=== PATIENT | female | born 1960 | race Caucasian/White ===

== ENCOUNTER 2022-12-05 11:37 | Emergency (ER) | payer OTHER ==
[~2022-12-05] VITALS: Ht 157.5 cm; Wt 78.0 kg
[~2022-12-05 11:37] MED LIST: ALBU2.5V13 NEB; ALBU90AE INH; ASPI-1497 MT; BENA10TA74 MT; BRIV50TA MT; FOLI0.4T6 MT; LEVE500T98 MT; LEVO750T68 MT; OMEP20TA23 PO; SERT-112 MT
[2022-12-05 11:44] VITALS: BP 108/54
[2022-12-05] MEDS ORDERED: PREDNISONE 10MG TABLET PO ONE (16:15)
[2022-12-05] MEDS ORDERED: ALBUTEROL (0.083%) 2.5MG/3ML NEB HHN ONE (16:15)
[2022-12-05] MEDS ORDERED: MED4 MT (17:29)
[2022-12-05] MEDS ORDERED: ALBU18HF2 IH (17:29)
== END 2022-12-05 17:36 | disposition home or self-care (01) ==
LOC: ER 11:37
DX: R06.02 Shortness of breath (principal); F32.9 Major depressive disorder, single episode, unspecified; I10 Essential (primary) hypertension; Z87.01 Personal history of pneumonia (recurrent); Z79.899 Other long term (current) drug therapy
CPT/HCPCS: 71045; 93005; 94640; 99283; J7512; Z7610

== ENCOUNTER 2023-03-26 18:56 | Emergency (ER) | payer OTHER ==
[~2023-03-26] VITALS: Ht 165.1 cm; Wt 83.0 kg
[~2023-03-26 18:56] MED LIST changes: +ALBU18HF2 IH; +MED4 MT
[2023-03-26 18:59] VITALS: O2SAT 94
[2023-03-26] MEDS ORDERED: ACETAMINOPHEN 650MG SUPP PR STA (19:52)
[2023-03-26] MEDS ORDERED: CEFTRIAXONE 2GM/50ML (ADDEASE) 50 ML IV ONE (20:00)
[2023-03-26] MEDS ORDERED: SODIUM CHLORIDE 0.9% 1000ML BAG (SEPSIS BOLUS) IV ONE (20:00)
[2023-03-26] MEDS ORDERED: LEVETIRACETAM 1000MG PREMIX 100 ML IV ONE (20:00)
[2023-03-26] MEDS ORDERED: AMPICILLIN 2,000 MG in SODIUM CHLORIDE 0.9% 100 ML IV SCH (20:00)
[2023-03-26] MEDS ORDERED: VANCOMYCIN 500MG PREMIX 100 ML IV SCH (20:00)
[2023-03-26] MEDS ORDERED: VANCOMYCIN 1G PREMIX 200 ML IV SCH (20:00)
[2023-03-26] MEDS ORDERED: VANCOMYCIN 1.5GM/250ML IVPB 250 ML IV NR (20:30)
[2023-03-26] MEDS ORDERED: CEFTRIAXONE 2 G in DEXTROSE 5% WATER 50 ML IV NR (20:30)
[2023-03-26 20:40] LABS: BASOPHILS % 0.9 % (0.0-2.0); EOSINOPHILS % 0.6 % (0.0-5.0); HEMATOCRIT. 29.5 % (36.0-48.0); HEMOGLOBIN. 10.2 g/dL (12.0-16.0); LYMPHOCYTES % 12.2 % (20.0-50.0); MEAN CORPUSCULAR HEMOGLOBIN 30.5 pg (28.0-32.0); MEAN CORPUSCULAR VOLUME 88.6 fL (81.0-99.0); MONOCYTES % 3.8 % (2.0-8.0); NEUTROPHILS % 82.5 % (40.0-76.0); PLATELET 806 x1000/uL (130-400); RED BLOOD CELL COUNT 3.33 mill/uL (4.2-5.4); RED CELL DISTRIBUTION WIDTH 14.3 % (11.6-14.6)
[2023-03-26 20:41] LABS: CHLORIDE 104 mEq/L (98-107)
[2023-03-26 20:58] LABS: BG BASE EXCESS -0.9 mmol/L (-2.0-2.0); BG CARBOXYHEMOGLOBIN 0.3 % (0.5-1.5); BG DEOXYHEMOGLOBIN 1.8 % (0.0-5.0); BG FRACTION INSPIRED OXYGEN 32; BG HCO3 ACT 24.3 mmol/L (22.0-26.0); BG METHEMOGLOBIN 0.5 % (0.0-1.5); BG OXYGEN SATURATION 98.2 % (92.0-98.5); BG OXYHEMOGLOBIN 97.4 % (94.0-97.0); BG PCO2 42.6 mmHg (35.0-45.0); BG PH 7.374 (7.350-7.450); BG PO2 115.3 mmHg (75.0-100.0); BG SAMPLE SITE RIGHT RADIAL; BG TOTAL HEMOGLOBIN 11.4 g/dL (12.0-18.0); BG VENT MODE NASAL CANNULA
[2023-03-27] VITALS: BP 136/71; PULSE 70; RESP 19; TEMP 99.4
== END 2023-03-27 00:20 | disposition short-term general hospital (02) ==
LOC: ER 18:56 → CANBEDREQ 03-28 20:19
DX: R56.9 Unspecified convulsions (principal); R50.9 Fever, unspecified; F32.9 Major depressive disorder, single episode, unspecified; I10 Essential (primary) hypertension; Z87.01 Personal history of pneumonia (recurrent)
CPT/HCPCS: 99291; 96365; 70450; 71045; 80053; 83605; 85025; 87040; 84484; 36415; 84145; 82805; 82375; 93005; 96368; 36600; J3370; J1953; J0290; J0696; J7060; J7050; J7030

== ENCOUNTER 2023-04-02 08:22 | Emergency (ER) | payer OTHER ==
[~2023-04-02] VITALS: Ht 165.1 cm; Wt 80.0 kg
[2023-04-02 08:26] VITALS: O2SAT 99
[2023-04-02] MEDS ORDERED: LEVETIRACETAM 500MG TABLET PO ONE (09:00)
[2023-04-02] MEDS ORDERED: ACETAMINOPHEN 325MG TABLET PO ONE (09:00)
[2023-04-02] MEDS ORDERED: MEROPENEM 1,000 MG in SODIUM CHLORIDE 0.9% 100 ML IV SCH (11:30)
[2023-04-02] MEDS ORDERED: MEROPENEM 1,000 MG in SODIUM CHLORIDE 0.9% 100 ML IV NR (12:00)
[2023-04-02 12:12] LABS: BASOPHILS % 0.5 % (0.0-2.0); EOSINOPHILS % 1.2 % (0.0-5.0); HEMATOCRIT. 30.8 % (36.0-48.0); HEMOGLOBIN. 10.4 g/dL (12.0-16.0); LYMPHOCYTES % 17.4 % (20.0-50.0); MEAN CORPUSCULAR HEMOGLOBIN 29.3 pg (28.0-32.0); MEAN CORPUSCULAR VOLUME 87.2 fL (81.0-99.0); MEAN PLATELET VOLUME 7.6 fl (7.4-10.4); MONOCYTES % 4.1 % (2.0-8.0); NEUTROPHILS % 76.8 % (40.0-76.0); PLATELET 675 x1000/uL (130-400); RED BLOOD CELL COUNT 3.53 mill/uL (4.2-5.4)
[2023-04-02 13:05] VITALS: BP 121/72; PULSE 72; RESP 15; TEMP 98.4
[2023-04-02 13:27] LABS: CHLORIDE 102 mEq/L (98-107)
== END 2023-04-02 13:25 | disposition admitted as inpatient to this hospital (09) ==
LOC: ER 08:22 → CANBEDREQ 20:28
DX: R56.9 Unspecified convulsions (principal); I10 Essential (primary) hypertension; Z79.82 Long term (current) use of aspirin; Z91.148 Patient's other noncompliance with medication regimen for other reason; Z98.890 Other specified postprocedural states
CPT/HCPCS: 80053; 85025; 36415; 99283; J2185; J7050; Z7610 ×3

== ENCOUNTER 2023-10-28 08:36 | Emergency (ER) | payer OTHER ==
[~2023-10-28] VITALS: Ht 162.6 cm; Wt 68.0 kg
[2023-10-28 08:39] VITALS: O2SAT 94
[2023-10-28] MEDS: LEVETIRACETAM 1000MG PREMIX 100 ML IV ONE (09:34)
[2023-10-28 09:40] LABS: HEMATOCRIT. 40.2 % (36.0-48.0); HEMOGLOBIN. 13.3 g/dL (12.0-16.0); MEAN CORPUSCULAR HEMOGLOBIN 30.1 pg (28.0-32.0); MEAN CORPUSCULAR HGB CONC 33.2 g/dL (31.0-37.0); MEAN CORPUSCULAR VOLUME 90.7 fL (81.0-99.0); MEAN PLATELET VOLUME 8.1 fl (7.4-10.4); PLATELET 362 x1000/uL (130-400); RED BLOOD CELL COUNT 4.43 mill/uL (4.2-5.4); RED CELL DISTRIBUTION WIDTH 15.2 % (11.6-14.6); WHITE BLOOD COUNT 20.7 x1000/uL (4.5-11.0)
[2023-10-28 09:56] LABS: DIFFERENTIAL COMMENT 1
[2023-10-28 09:57] LABS: ALANINE AMINOTRANSFERASE 15 IU/L (10-49); ALBUMIN 4.7 g/dL (3.2-4.8); AMMONIA < 10 uMol/L (<32); ASPARTATE AMINOTRANSFERASE 32 IU/L (<34); BILIRUBIN TOTAL 0.4 mg/dL (0.1-1.0); CALCIUM 9.8 mg/dL (8.7-10.4); CARBON DIOXIDE 22 mEq/L (21-32); CHLORIDE 105 mEq/L (98-107); CREATININE 0.7 mg/dL (0.6-1.0); ETHANOL BLOOD < 10 mg/dL (<10); GLUCOSE 125 mg/dL (70-105); POTASSIUM 3.9 mEq/L (3.5-5.1); PROTEIN TOTAL 8.7 g/dL (6.0-8.3); SODIUM 139 mEq/L (136-145); UREA NITROGEN BLOOD 17 mg/dL (9-23)
[2023-10-28 12:29] LABS: PLATELET ESTIMATE NORMAL
[2023-10-28 15:32] VITALS: BP 141/68; PULSE 90; RESP 22; TEMP 98.6
== END 2023-10-28 15:35 | disposition short-term general hospital (02) ==
LOC: ER 08:36 → CANBEDREQ 12:40 → ER 15:35
DX: R56.9 Unspecified convulsions (principal); R41.82 Altered mental status, unspecified; J44.1 Chronic obstructive pulmonary disease with (acute) exacerbation; I10 Essential (primary) hypertension; Z79.899 Other long term (current) drug therapy; Z79.82 Long term (current) use of aspirin; Z98.890 Other specified postprocedural states
CPT/HCPCS: 80053; 80320; 82140; 85025; 36415; 71045; 70450; 93005; 96365; 99285; J1953; G0480

== ENCOUNTER 2024-03-21 15:00 | Inpatient (IN) | payer MEDICARE, MEDICAID ==
[~2024-03-21] VITALS: Ht 167.6 cm; Wt 83.5 kg
[2024-03-21] MEDS: LORAZEPAM 2MG/ML INJ IV ONE (15:28)
[2024-03-21 17:03] LABS: BASOPHILS % 0.5 % (0.0-2.0); EOSINOPHILS % 3.2 % (0.0-5.0); HEMATOCRIT. 36.6 % (36.0-48.0); HEMOGLOBIN. 12.4 g/dL (12.0-16.0); LYMPHOCYTES % 13.9 % (20.0-50.0); MEAN CORPUSCULAR HEMOGLOBIN 30.9 pg (28.0-32.0); MEAN CORPUSCULAR HGB CONC 33.9 g/dL (31.0-37.0); MEAN CORPUSCULAR VOLUME 91.2 fL (81.0-99.0); MEAN PLATELET VOLUME 7.9 fl (7.4-10.4); MONOCYTES % 4.3 % (2.0-8.0); NEUTROPHILS % 78.1 % (40.0-76.0); PLATELET 352 x1000/uL (130-400); RED BLOOD CELL COUNT 4.01 mill/uL (4.2-5.4); RED CELL DISTRIBUTION WIDTH 15.2 % (11.6-14.6); WHITE BLOOD COUNT 9.2 x1000/uL (4.5-11.0)
[2024-03-21 17:09] LABS: CHLORIDE 106 mEq/L (98-107); POTASSIUM 4.1 mEq/L (3.5-5.1); SODIUM 138 mEq/L (136-145)
[2024-03-21 17:10] LABS: CALCIUM 9.3 mg/dL (8.7-10.4); CARBON DIOXIDE 26 mEq/L (21-32)
[2024-03-21 17:13] LABS: PROTHROMBIN TIME 10.7 sec (9.6-11.0)
[2024-03-21 17:15] LABS: CREATININE 0.7 mg/dL (0.6-1.0); GLUCOSE 107 mg/dL (70-105); UREA NITROGEN BLOOD 22 mg/dL (9-23)
[2024-03-21 17:17] LABS: ALANINE AMINOTRANSFERASE 29 IU/L (10-49); ALBUMIN 4.4 g/dL (3.2-4.8); ASPARTATE AMINOTRANSFERASE 26 IU/L (<34); BILIRUBIN TOTAL 0.2 mg/dL (0.1-1.0); PROTEIN TOTAL 7.7 g/dL (6.0-8.3)
[2024-03-21 17:21] LABS: BILIRUBIN DIRECT < 0.1 mg/dL (<=3.0); TROPONIN I HIGH SENSITIVITY < 4 ng/L (3.0-34)
[2024-03-21 20:25] VITALS: BP 134/66; PULSE 63; RESP 18; TEMP 97.4
[2024-03-21] MEDS ORDERED: LEVETIRACETAM 1,000 MG in SODIUM CHLORIDE 0.9% 100 ML IV SCH (20:45)
[2024-03-21] MEDS ORDERED: LEVETIRACETAM 1000MG PREMIX 100 ML IV NR (20:45)
[2024-03-21 23:12] VITALS: BP 134/66; PULSE 93; RESP 22; TEMP 97.4
[2024-03-22] VITALS: BP 153/81; PULSE 72; RESP 20; TEMP 97.7
[2024-03-22] MEDS: LEVETIRACETAM 500MG TABLET PO SCH (01:33)
[2024-03-22] MEDS ORDERED: LORAZEPAM 2MG/ML INJ IV PRN (01:45)
[2024-03-22 04:00] VITALS: BP 128/60; PULSE 55; RESP 21; TEMP 96.8
[2024-03-22 08:00] VITALS: BP 122/45; PULSE 60; RESP 20; TEMP 97.7
[2024-03-22] MEDS: OMEPRAZOLE 20MG CAPSULE EXTENDED RELEASE PO SCH (08:49)
[2024-03-22] MEDS: ASPIRIN 81MG TABLET PO SCH (08:49)
[2024-03-22 16:00] VITALS: BP 126/53; PULSE 63; RESP 18; TEMP 97.7
[2024-03-22 20:00] VITALS: BP 141/67; PULSE 59; RESP 21; TEMP 98.6
[2024-03-23] VITALS: BP 124/56; PULSE 53; RESP 18; TEMP 98.1
[2024-03-23 04:00] VITALS: BP 124/71; PULSE 56; RESP 18; TEMP 97.7
[2024-03-23 08:00] VITALS: BP 131/89; PULSE 58; RESP 15; TEMP 98.7
[2024-03-23 12:00] VITALS: BP 124/79; PULSE 59; RESP 15; TEMP 98.2
[2024-03-23 14:35] VITALS: BP 124/79; PULSE 59; TEMP 98.2; O2SAT 95
[2024-03-23 16:00] VITALS: BP 122/71; PULSE 65; RESP 16; TEMP 98.4
== END 2024-03-23 17:54 | disposition home or self-care (01) | DRG 101 ==
LOC: ER 15:17 → 8WST 22:19
PROVIDERS: ADMIT Internal Medicine; ATTEND Internal Medicine
DX: G40.909 Epilepsy, unspecified, not intractable, without status epilepticus (principal); J44.9 Chronic obstructive pulmonary disease, unspecified; I10 Essential (primary) hypertension; Z72.0 Tobacco use
CPT/HCPCS: 36415; 71045; 80048; 80076; 82542; 84484; 85025; 93005; 95816; 99285; J1953; J2060; J7050

== ENCOUNTER 2024-04-24 06:57 | Inpatient (IN) | payer MEDICARE, MEDICAID ==
[~2024-04-24] VITALS: Ht 165.1 cm; Wt 81.2 kg
[~2024-04-24 06:57] MED LIST changes: -ALBU90AE INH; -BENA10TA74 MT; -LEVO750T68 MT; -MED4 MT
[2024-04-24 07:52] LABS: BASOPHILS % 0.6 % (0.0-2.0); HEMATOCRIT. 37.2 % (36.0-48.0); HEMOGLOBIN. 12.3 g/dL (12.0-16.0); LYMPHOCYTES % 17.4 % (20.0-50.0); MEAN CORPUSCULAR HEMOGLOBIN 30.9 pg (28.0-32.0); MEAN CORPUSCULAR VOLUME 93.4 fL (81.0-99.0); MEAN PLATELET VOLUME 9.3 fl (7.4-10.4); MONOCYTES % 6.3 % (2.0-8.0); NEUTROPHILS % 71.7 % (40.0-76.0); PLATELET 405 x1000/uL (130-400); RED BLOOD CELL COUNT 3.98 mill/uL (4.2-5.4); WHITE BLOOD COUNT 6.8 x1000/uL (4.5-11.0)
[2024-04-24 07:57] LABS: CHLORIDE 109 mEq/L (98-107); POTASSIUM 4.1 mEq/L (3.5-5.1); SODIUM 140 mEq/L (136-145)
[2024-04-24 07:58] LABS: CALCIUM 9.1 mg/dL (8.7-10.4); CARBON DIOXIDE 24 mEq/L (21-32)
[2024-04-24 08:03] LABS: CREATININE 0.5 mg/dL (0.6-1.0); GLUCOSE 123 mg/dL (70-105); UREA NITROGEN BLOOD 14 mg/dL (9-23)
[2024-04-24 08:04] LABS: CARBAMAZEPINE < 0.4 ug/mL (4-12); ETHANOL BLOOD < 10 mg/dL (<10)
[2024-04-24 08:27] LABS: PHENOBARBITAL < 3.0 ug/mL (15.0-40.0); PHENYTOIN < 2.0 ug/mL (10-20); VALPROIC ACID < 3.0 ug/mL (50-100)
[2024-04-24] MEDS: SODIUM CHLORIDE 0.9% 1,000 ML IV ONE (09:58)
[2024-04-24] MEDS: LEVETIRACETAM 500MG PREMIX 100 ML IV SCH ×2 (09:58→22:58)
[2024-04-24] MEDS ORDERED: IPRATROPIUM/ALBUTEROL 0.5-3(2.5)MG/3ML NEB HHN PRN (12:00)
[2024-04-24] MEDS ORDERED: GUAIFENESIN 200MG/10ML SUGAR FREE UDC PO PRN (12:00)
[2024-04-24] MEDS ORDERED: MAGNESIUM/ALUMINUM HYDROXIDE/SIMETHICONE 30ML UDC PO PRN (12:00)
[2024-04-24] MEDS ORDERED: ONDANSETRON HCL 4MG/2ML INJ IV PRN (12:00)
[2024-04-24] MEDS ORDERED: ACETAMINOPHEN 325MG TABLET PO PRN ×2 (12:00)
[2024-04-24] MEDS ORDERED: CLONIDINE 0.1MG TABLET PO PRN (12:00)
[2024-04-24] MEDS ORDERED: DOCUSATE SODIUM 100MG CAPSULE PO PRN (12:00)
[2024-04-24] MEDS: DEXT 5%/0.45% NACL 1000ML 1,000 ML IV SCH (12:30)
[2024-04-24] MEDS ORDERED: LORAZEPAM 4MG/ML INJ IV PRN (12:30)
[2024-04-24 13:57] LABS: BG BASE EXCESS 0.1 mmol/L (-2.0-2.0); BG CARBOXYHEMOGLOBIN 0.9 % (0.5-1.5); BG DEOXYHEMOGLOBIN 5.3 % (0.0-5.0); BG FRACTION INSPIRED OXYGEN 21; BG HCO3 ACT 23.1 mmol/L (22.0-26.0); BG METHEMOGLOBIN 0.3 % (0.0-1.5); BG OXYGEN SATURATION 94.6 % (92.0-98.5); BG OXYHEMOGLOBIN 93.5 % (94.0-97.0); BG PCO2 31.9 mmHg (35.0-45.0); BG PH 7.477 (7.350-7.450); BG PO2 68.8 mmHg (75.0-100.0); BG SAMPLE SITE RIGHT BRACHIAL; BG VENT MODE ROOM AIR
[2024-04-24] MEDS: ASPIRIN 81MG EC TABLET PO SCH (15:00)
[2024-04-24] MEDS: ENOXAPARIN 40MG/0.4ML SYR SUBCUT SCH (15:00)
[2024-04-24 16:58] LABS: TROPONIN I HIGH SENSITIVITY 28 ng/L (3.0-34)
[2024-04-24 16:59] LABS: ALANINE AMINOTRANSFERASE 89 IU/L (10-49); AMMONIA < 17 uMol/L (<32); ASPARTATE AMINOTRANSFERASE 41 IU/L (<34); CREATINE KINASE 191 IU/L (34-145)
[2024-04-24 17:00] LABS: BILIRUBIN TOTAL 0.3 mg/dL (0.1-1.0); PHOSPHORUS 1.2 mg/dL (2.5-4.9); PROTEIN TOTAL 6.8 g/dL (6.0-8.3)
[2024-04-24 17:18] LABS: BILIRUBIN DIRECT < 0.1 mg/dL (<=3.0)
[2024-04-24] MEDS: PANTOPRAZOLE SODIUM 40 MG/VIAL IV SCH (18:00)
[2024-04-24 20:00] VITALS: BP 0/0; PULSE 0; RESP 18; TEMP 98
[2024-04-24] MEDS ORDERED: LEVETIRACETAM 500MG PREMIX 100 ML IV SCH (21:00)
[2024-04-24 21:23] LABS: TROPONIN I HIGH SENSITIVITY 25 ng/L (3.0-34)
[2024-04-24] MEDS ORDERED: LORAZEPAM 2MG/ML INJ IV PRN (22:27)
[2024-04-24] MEDS: SERTRALINE HCL 100MG TABLET PO SCH (22:58)
[2024-04-25 00:13] VITALS: BP 131/66; PULSE 74; RESP 18; TEMP 97.9
[2024-04-25 00:52] LABS: CREATINE KINASE 179 IU/L (34-145)
[2024-04-25 04:00] VITALS: BP 138/69; PULSE 66; RESP 18; TEMP 97.9
[2024-04-25 08:00] VITALS: BP 140/79; PULSE 70; RESP 20; TEMP 97.8
[2024-04-25 08:51] LABS: BASOPHILS % 0.7 % (0.0-2.0); EOSINOPHILS % 6.2 % (0.0-5.0); LYMPHOCYTES % 32.2 % (20.0-50.0); MEAN CORPUSCULAR HEMOGLOBIN 30.7 pg (28.0-32.0); MEAN CORPUSCULAR HGB CONC 33.2 g/dL (31.0-37.0); MEAN CORPUSCULAR VOLUME 92.4 fL (81.0-99.0); MEAN PLATELET VOLUME 9.4 fl (7.4-10.4); MONOCYTES % 9.3 % (2.0-8.0); NEUTROPHILS % 51.6 % (40.0-76.0); PLATELET 411 x1000/uL (130-400); RED CELL DISTRIBUTION WIDTH 15.1 % (11.6-14.6); WHITE BLOOD COUNT 6.6 x1000/uL (4.5-11.0)
[2024-04-25 09:00] LABS: CALCIUM 8.7 mg/dL (8.7-10.4); CARBON DIOXIDE 25 mEq/L (21-32); CHLORIDE 104 mEq/L (98-107); POTASSIUM 3.6 mEq/L (3.5-5.1); SODIUM 137 mEq/L (136-145)
[2024-04-25 09:06] LABS: CREATININE 0.5 mg/dL (0.6-1.0); GLUCOSE 108 mg/dL (70-105); TRIGLYCERIDE 162 mg/dL (0-150); UREA NITROGEN BLOOD 9 mg/dL (9-23)
[2024-04-25 09:07] LABS: LDL CHOLESTEROL 168 mg/dL (5-100)
[2024-04-25 09:08] LABS: CHOLESTEROL 208 mg/dL (<200); HDL CHOLESTEROL 34 mg/dL (>65)
[2024-04-25 12:51] VITALS: BP 136/61; PULSE 71; RESP 20; TEMP 97.5
[2024-04-25 16:00] VITALS: BP 131/55; PULSE 70; RESP 20; TEMP 97.9
[2024-04-25] MEDS ORDERED: SODIUM PHOSPHATE 15 MMOL in DEXT 5% WATER 245 ML IV NR (16:30)
[2024-04-25] MEDS: MAGNESIUM 2 G PREMIX 50 ML IV NR (17:46)
[2024-04-25 20:00] VITALS: BP 128/85; PULSE 68; RESP 19; TEMP 97.5
[2024-04-26] VITALS: BP 125/79; PULSE 81; RESP 18; TEMP 98.2
[2024-04-26 04:00] VITALS: BP 123/81; PULSE 76; RESP 18; TEMP 97.5
[2024-04-26 07:15] LABS: HEMATOCRIT 36.2 % (36.0-48.0); MEAN CORPUSCULAR HEMOGLOBIN 30.7 pg (28.0-32.0); MEAN CORPUSCULAR HGB CONC 33.2 g/dL (31.0-37.0); MEAN CORPUSCULAR VOLUME 92.5 fL (81.0-99.0); PLATELET 403 x1000/uL (130-400); RED BLOOD CELL COUNT 3.92 mill/uL (4.2-5.4)
[2024-04-26 07:22] LABS: CARBON DIOXIDE 25 mEq/L (21-32); CHLORIDE 105 mEq/L (98-107); POTASSIUM 3.7 mEq/L (3.5-5.1); SODIUM 137 mEq/L (136-145)
[2024-04-26 07:23] LABS: CALCIUM 9.1 mg/dL (8.7-10.4)
[2024-04-26 07:28] LABS: CREATININE 0.5 mg/dL (0.6-1.0); GLUCOSE 101 mg/dL (70-105)
[2024-04-26 07:29] LABS: UREA NITROGEN BLOOD 10 mg/dL (9-23)
[2024-04-26 08:00] VITALS: BP 126/83; PULSE 64; RESP 18; TEMP 98.1
[2024-04-26 12:00] VITALS: BP 124/70; PULSE 74; RESP 18; TEMP 98.2
[2024-04-26 16:00] VITALS: BP 125/65; PULSE 68; RESP 18; TEMP 98.5
[2024-04-26] MEDS: QUETIAPINE FUMARATE 25MG TABLET PO SCH (20:36)
[2024-04-26] MEDS: LEVETIRACETAM 500MG TABLET PO SCH ×2 (20:36→23:45)
[2024-04-27] VITALS: BP 123/62; PULSE 64; RESP 18; TEMP 97.5
[2024-04-27] MEDS: LACOSAMIDE 100MG TABLET PO SCH (01:43)
[2024-04-27 04:00] VITALS: BP 130/60; PULSE 62; RESP 18; TEMP 97.1
[2024-04-27 08:00] VITALS: BP 134/91; PULSE 66; RESP 18; TEMP 98.2
[2024-04-27] MEDS: FAMOTIDINE 20MG/2ML VIAL IV SCH (09:00)
[2024-04-27 10:41] LABS: CHLORIDE 105 mEq/L (98-107); POTASSIUM 3.4 mEq/L (3.5-5.1); SODIUM 138 mEq/L (136-145)
[2024-04-27 10:42] LABS: CALCIUM 9.5 mg/dL (8.7-10.4); CARBON DIOXIDE 25 mEq/L (21-32)
[2024-04-27 10:47] LABS: CREATININE 0.7 mg/dL (0.6-1.0); GLUCOSE 130 mg/dL (70-105); UREA NITROGEN BLOOD 18 mg/dL (9-23)
[2024-04-27 12:00] VITALS: BP 130/80; PULSE 65; RESP 18; TEMP 97.7
[2024-04-27] MEDS: MAGNESIUM 2 G PREMIX 50 ML IV NR (13:42)
[2024-04-27] MEDS: SODIUM PHOSPHATE 20 MMOL in DEXT 5% WATER 243.3333 ML IV NR (14:52)
[2024-04-27 16:00] VITALS: BP 132/85; PULSE 63; RESP 18; TEMP 97.8
[2024-04-27 20:00] VITALS: BP 139/71; PULSE 73; RESP 18; TEMP 96.8
[2024-04-28] VITALS: BP 113/74; PULSE 66; RESP 18; TEMP 96.9
[2024-04-28 04:00] VITALS: BP 129/66; PULSE 61; RESP 18; TEMP 96.1
[2024-04-28 08:00] VITALS: BP 125/63; PULSE 62; RESP 20; TEMP 97.7
[2024-04-28 12:00] VITALS: BP 126/72; PULSE 66; RESP 20; TEMP 97.5
[2024-04-28] MEDS ORDERED: ATOR10TA69 PO (14:01)
[2024-04-28] MEDS ORDERED: LEVE1000 PO (14:01)
[2024-04-28 14:05] VITALS: BP 135/86; PULSE 88; TEMP 97.2; O2SAT 98
== END 2024-04-28 16:25 | disposition home or self-care (01) | DRG 100 ==
LOC: ER 06:57 → EDBEDREQ 09:36 → 5WST 10:48 → EDBEDREQTM 10:55 → EDBEDREQ 10:55 → 8WST 22:26
PROVIDERS: ADMIT Hospitalist; ATTEND Hospitalist
PROC: 4A10X4Z Monitoring of Central Nervous Electrical Activity, External Approach (ICD-10-PCS; principal; 2024-04-27)
DX: G40.909 Epilepsy, unspecified, not intractable, without status epilepticus (principal); G92.8 Other toxic encephalopathy; E11.9 Type 2 diabetes mellitus without complications; I10 Essential (primary) hypertension; J44.9 Chronic obstructive pulmonary disease, unspecified; F39 Unspecified mood [affective] disorder; F32.A Depression, unspecified; Z79.899 Other long term (current) drug therapy; Z86.73 Personal history of transient ischemic attack (TIA), and cerebral infarction without residual deficits; Z87.01 Personal history of pneumonia (recurrent); Z91.148 Patient's other noncompliance with medication regimen for other reason
CPT/HCPCS: 36415; 36600; 71045; 80048; 80061; 80076; 80156; 80165; 80184; 80185; 80320; 80339; 82140; 82375; 82542; 82550; 82805; 82962; 83036; 83605; 83735; 84100; 84439; 84481; 84484; 85025; 85027; 93005; 95816; 99291; C1893; J1650; J1953; J2470; J3475; J3490; J7060; G0480